=== PATIENT | female | born 1945 | race African-American/Black ===

== ENCOUNTER 2016-11-23 07:30 | Day surgery (SDC) | payer OTHER ==
[2016-11-23] MEDS ORDERED: D5 LR 1000 ML 1,000 ML IV ONE (07:49)
[2016-11-23] MEDS ORDERED: DIPRIVAN VIAL 20 ML ONE (09:13)
[2016-11-23 09:56] VITALS: BP 138/64
== END 2016-11-23 09:55 | disposition home or self-care (01) | DRG 392 ==
LOC: SURG1 07:30
PROVIDERS: ATTEND Internal Medicine Gastroenterology
PROC: 0DJ08ZZ Inspection of Upper Intestinal Tract, Via Natural or Artificial Opening Endoscopic (ICD-10-PCS; principal; 2016-11-23 09:30)
PROC: 0DB68ZX Excision of Stomach, Via Natural or Artificial Opening Endoscopic, Diagnostic (ICD-10-PCS; principal; 2016-11-23 09:30)
DX: R10.13 Epigastric pain (principal); R07.89 Other chest pain; R11.2 Nausea with vomiting, unspecified; K21.9 Gastro-esophageal reflux disease without esophagitis; D64.89 Other specified anemias; K22.4 Dyskinesia of esophagus; B37.81 Candidal esophagitis; K44.9 Diaphragmatic hernia without obstruction or gangrene; K31.89 Other diseases of stomach and duodenum; K29.60 Other gastritis without bleeding
CPT/HCPCS: 99100; A4217; J3490; J7120

== ENCOUNTER → 2017-10-09 | Outpatient (CLI) | payer OTHER ==
[~2017-10-09] MED LIST: NS 100 ML IV 100 ML IV ONE
--- NOTE | 2017-10-09 12:05 | CT ---
Examination: CT of the chest with contrast. Clinical history: Follow-up pulmonary nodule. Technique: Multiple axial images were obtained from the lung apices down to the lung bases, following the intravenous administration of 100 mL of Omnipaque 350. Dose reduction techniques including autom ated exposure control (AEC) and adjustment of mA and kV were utilized. Comparison: 08/31/2016. Findings: Both lobes of the thyroid are heterogeneous in appearance. A thyroid ultrasound could be obtained for further evaluation. The heart is normal in size. Coronary artery calcifications are noted, suggestive of coronary artery disease. No pericardial effusion is noted. The thoracic aorta is calcified, but is normal in caliber. The remainder of the great vessels are wit hin normal limits. The lungs are clear. No pulmonary mass, nodule or confluent opacity is noted. No enlarged lymph nodes, by CT criteria, are noted in the mediastinum, kiana or axilla bilaterally. No central obstructing bronchial lesion is noted. No pneumothorax or pleural effusion is noted. The right kidney is malrotated. The remainder of the visualized portion of the upper abdomen is unrem arkable. Degenerative changes are noted in the spine. No acute osseous abnormality is noted. Impression: 1. The lungs are clear. No pulmonary mass, nodule or confluent opacity is noted. 2. Both lobes of the thyroid are heterogeneous in appearance. A thyroid ultrasound could be obtained for further evaluation. 3. Coronary artery calcifications are noted, suggestive of coronary artery disease. 4. Malrotated right kidney. Reported By:
== END ==
LOC: RAD 08:50
PROVIDERS: ATTEND Internal Medicine
DX: R91.1 Solitary pulmonary nodule (principal); Q63.2 Ectopic kidney
CPT/HCPCS: 71260; A4222